=== PATIENT | female | born 2000 | race Caucasian/White ===

== ENCOUNTER 2023-10-18 16:50 | Emergency (ER) | payer MEDICAID, OTHER ==
[~2023-10-18] VITALS: Ht 162.6 cm; Wt 70.0 kg
[2023-10-18 16:59] VITALS: O2SAT 96
[2023-10-18] MEDS ORDERED: ACETAMINOPHEN 650MG/20.3ML UDC PO ONE (17:15)
[2023-10-18] MEDS ORDERED: ACET-2708 MT (19:56)
[2023-10-18] MEDS ORDERED: IBUP-2028 MT (19:57)
[2023-10-18] MEDS ORDERED: KETOROLAC 60MG/2ML VIAL IM ONE (20:00)
[2023-10-18 20:27] VITALS: BP 130/85; PULSE 84; RESP 16; TEMP 98.2
== END 2023-10-18 20:28 | disposition home or self-care (01) ==
LOC: ER 16:50
DX: M79.10 Myalgia, unspecified site (principal); M25.561 Pain in right knee; V49.49XA Driver injured in collision with other motor vehicles in traffic accident, initial encounter; Y93.89 Activity, other specified; Y92.89 Other specified places as the place of occurrence of the external cause; Y99.8 Other external cause status
CPT/HCPCS: 81025; 71046; 72170; 73560; 73590; 73600; 96372; 99284; J1885; Z7610 ×2